=== PATIENT | female | born 1990 | race Caucasian/White ===

== ENCOUNTER 2018-06-09 12:49 | Emergency (ER) | payer OTHER ==
[~2018-06-09] VITALS: Ht 160 cm; Wt 54.4 kg
[2018-06-09] MEDS ORDERED: LIDOCAINE VISC100 ML TOP (13:25)
[2018-06-09] MEDS ORDERED: KEFLEX500 M1 PO (13:31)
[2018-06-09] MEDS ORDERED: FLAGYL500 M1 PO (13:34)
[2018-06-09 13:40] LABS: URINE BILIRUBIN NEGATIVE (Negative); URINE BLOOD 2+ (Negative); URINE CLARITY CLEAR; URINE COLOR YELLOW; URINE GLUCOSE-RANDOM NEGATIVE (Negative); URINE KETONES NEGATIVE (Negative); URINE LEUKOCYTES-REFLEX TRACE (Negative); URINE NITRITE-REFLEX NEGATIVE (Negative); URINE PROTEIN NEGATIVE (Negative); URINE UROBILINOGEN 0.2 E.U./dl (0.2-1.0)
[2018-06-09 13:49] LABS: SQUAMOUS 4-10 Moderate /LPF (0-3)
[2018-06-09 13:50] LABS: CASTS None Seen /LPF (None Seen); CRYSTALS None Seen /LPF (None Seen); MUCUS 4-6 Moderate strn/LPF (None Seen); URINE RBC 3-10 Few /HPF (0-2); URINE WBC-REFLEX 0-5 Rare /HPF (0-5)
[2018-06-09 14:08] VITALS: BP 108/72
== END 2018-06-09 14:09 | disposition home or self-care (01) ==
LOC: M.ERS 12:49
PROVIDERS: Physician Assistant
DX: S30.814A Abrasion of vagina and vulva, initial encounter (principal); N76.0 Acute vaginitis; B96.89 Other specified bacterial agents as the cause of diseases classified elsewhere; X58.XXXA Exposure to other specified factors, initial encounter; Y93.89 Activity, other specified; Y92.89 Other specified places as the place of occurrence of the external cause; Y99.8 Other external cause status